=== PATIENT | female | born 1975 | race Caucasian/White ===

== ENCOUNTER → 2018-10-06 | Outpatient (CLI) | payer BC ==
[~2018-10-06] MED LIST: CIPRO750 MG PO; MOTRIN800 MG PO; MULTI-DAY1 TA1 PO; NIFEREX150 MG PO; SYNTHROID0.1 MG PO
[2018-10-06 07:57] LABS: BASO # 0.1 10*3/uL (0.0-0.1); BASO % 0.8 % (0.0-1.0); EOS # 0.3 10*3/uL (0.0-0.4); EOS % 4.7 % (1.0-4.0); HEMATOCRIT 44.1 % (37.0-47.0); HEMOGLOBIN 13.9 g/dl (12.0-16.0); LYMPH # 2.1 10*3/uL (1.3-4.4); LYMPH % 32.2 % (27.0-41.0); MEAN CELL VOLUME 92.5 fl (81.0-99.0); MEAN CORPUSCULAR HGB 29.1 pg (27.0-31.0); MEAN CORPUSCULAR HGB CONC 31.5 g/dl (33.0-37.0); MEAN PLATELET VOLUME 9.9 fl (9.6-12.3); MONO # 0.4 10*3/uL (0.1-1.0); MONO % 5.8 % (3.0-9.0); NEUT # 3.6 10*3/uL (2.3-7.9); NEUT % 56.3 % (47.0-73.0); PLATELET COUNT AUTOMATED 235 10*3/uL (130-400); RED BLOOD COUNT 4.77 10*6/uL (4.10-5.10); RED CELL DISTRI WIDTH 13.2 % (0-14.5); WHITE BLOOD COUNT 6.4 10*3/uL (4.8-10.8)
[2018-10-06 08:31] LABS: ALBUMIN 3.8 gm/dl (3.1-4.5); ALKALINE PHOSPHATASE 111 U/L (45-117); BUN 10 mg/dl (7-24); CHLORIDE 104 mmol/L (98-107); CHOLESTEROL 187 mg/dL (<200); CREATININE 0.81 mg/dL (0.55-1.02); FREE T4 0.84 ng/dl (0.76-1.46); HDL CHOLESTEROL 43 mg/dl (40-60); LDL CHOLESTEROL 114 mg/dL (9-159); POTASSIUM 3.6 mmol/L (3.5-5.1); SGOT/AST 17 IU/L (3-35); SGPT/ALT 21 U/L (12-78); SODIUM 141 mmol/L (136-145); TOTAL PROTEIN 7.5 gm/dL (6.4-8.2); TRIGLYCERIDES 148 mg/dl (<150); VLDL CHOLESTEROL 30 mg/dL (6-40)
[2018-10-06 08:52] LABS: VITAMIN D, 25-HYDROXY 12.7 ng/mL (30-100)
== END | disposition home or self-care (01) ==
LOC: LAB 07:15
PROVIDERS: Internal Medicine
DX: Z13.1 Encounter for screening for diabetes mellitus (principal); Z13.21 Encounter for screening for nutritional disorder; Z13.220 Encounter for screening for lipoid disorders; E11.9 Type 2 diabetes mellitus without complications; E78.2 Mixed hyperlipidemia; I10 Essential (primary) hypertension; E55.9 Vitamin D deficiency, unspecified

== ENCOUNTER 2019-08-08 13:51 | Inpatient (IN) | payer BC ==
[~2019-08-08] VITALS: Ht 162.5 cm; Wt 95.8 kg
[~2019-08-08 13:51] MED LIST changes: -SYNTHROID0.1 MG PO; +Synthroid,Lev150 MCG PO
[2019-08-08 14:00] VITALS: BP 124/78
--- NOTE | 2019-08-08 14:00 | NUR ---
Time: 1399 A 44 year old MALE admitted to under services of BOY FELIZ MD. Pt. arrived via ambulatory from ADMITTING. Chief complaint: DYSURIA. PACO VASQUEZ
[2019-08-08 15:35] LABS: HEMATOCRIT 40.4 % (37.0-47.0); HEMOGLOBIN 13.4 g/dl (12.0-16.0); MEAN CELL VOLUME 87.6 fl (81.0-99.0); MEAN CORPUSCULAR HGB 29.1 pg (27.0-31.0); MEAN CORPUSCULAR HGB CONC 33.2 g/dl (33.0-37.0); MEAN PLATELET VOLUME 10.5 fl (9.6-12.3); PLATELET COUNT AUTOMATED 148 10*3/uL (130-400); RED BLOOD COUNT 4.61 10*6/uL (4.10-5.10); RED CELL DISTRI WIDTH 13.3 % (0-14.5); WHITE BLOOD COUNT 3.2 10*3/uL (4.8-10.8)
[2019-08-08 15:53] LABS: ALBUMIN 3.5 gm/dl (3.1-4.5); ALKALINE PHOSPHATASE 110 U/L (45-117); BUN 9 mg/dl (7-24); CHLORIDE 98 mmol/L (98-107); CREATININE 0.91 mg/dL (0.55-1.02); POTASSIUM 3.7 mmol/L (3.5-5.1); SGOT/AST 54 IU/L (3-35); SGPT/ALT 59 U/L (12-78); SODIUM 133 mmol/L (136-145); TOTAL PROTEIN 7.5 gm/dL (6.4-8.2)
[2019-08-08 16:00] VITALS: BP 129/65
[2019-08-08 16:01] LABS: TOTAL CELLS COUNTED 100 #CELLS
[2019-08-08 16:02] LABS: PLATELET SUFFICIENCY NORMAL (NORMAL)
[2019-08-08 17:28] LABS: BILIRUBIN NEGATIVE (NEGATIVE); BLOOD 1+ (NEGATIVE); CLARITY CLEAR (CLEAR); COLOR YELLOW (YELLOW); GLUCOSE NEGATIVE (NEGATIVE); KETONE NEGATIVE (NEGATIVE); LEUKO ESTERASE 3+ (NEGATIVE); NITRITE NEGATIVE (NEGATIVE); SPECIFIC GRAVITY <= 1.005 (1.005-1.030); UROBILINOGEN 0.2 E.U./dl (0.2-1.0)
[2019-08-08 17:47] LABS: BACTERIA 1+; WBC 16-20 wbc/hpf (0-5)
[2019-08-08 20:00] VITALS: BP 125/78
[2019-08-09] VITALS: BP 117/72
--- NOTE | 2019-08-09 01:07 | NUR ---
24 HR chart check completed.
--- NOTE | 2019-08-09 02:25 | NUR ---
sleeping no acute distress noted.
--- NOTE | 2019-08-09 05:46 | NUR ---
UP TO BATHROOM. ALERT AND ORIENTED X 3. NO ACUTE DISTRESS NOTED.
--- NOTE | 2019-08-09 07:05 | NUR ---
ARRIVED ON SHIFT, INTRODUCED TO PATIENT, NO NEEDS VOICED AT THIS TIME, WHITE BOARD UPDATED. REPORT RECEIVED.
[2019-08-09] MEDS ORDERED: CIPRO500 MG PO (07:43)
[2019-08-09] MEDS ORDERED: DIFLUCAN150 MG PO (07:48)
[2019-08-09 08:00] VITALS: BP 112/55
--- NOTE | 2019-08-09 10:21 | NUR ---
Discharge instructions reviewed with patient/family. Patient receptive and verbalizes understanding. Follow-up care arranged. Written instructions AND PERSCRIPTIONS given to patient. iv removed, declined w/c for discharge. CHARLINE RUBIO
== END 2019-08-09 10:21 | disposition home or self-care (01) | DRG 690 ==
LOC: 4E 13:51
PROVIDERS: ADMIT Internal Medicine
DX: N39.0 Urinary tract infection, site not specified (principal); E03.9 Hypothyroidism, unspecified; N83.202 Unspecified ovarian cyst, left side; I95.9 Hypotension, unspecified

== ENCOUNTER → 2020-07-30 | Outpatient (CLI) | payer BC ==
[~2020-07-30] MED LIST changes: +CIPRO500 MG PO; +DIFLUCAN150 MG PO
== END | disposition home or self-care (01) ==
LOC: COVID19 16:05
PROVIDERS: ATTEND Internal Medicine
DX: Z20.828 Contact with and (suspected) exposure to other viral communicable diseases (principal)

== ENCOUNTER 2022-11-04 18:59 | Emergency (ER) | payer BC ==
[~2022-11-04] VITALS: Ht 162.5 cm; Wt 99.8 kg
== END 2022-11-04 22:14 | disposition home or self-care (01) ==
LOC: ED 18:59
DX: S01.511A Laceration without foreign body of lip, initial encounter (principal); S89.91XA Unspecified injury of right lower leg, initial encounter; S69.91XA Unspecified injury of right wrist, hand and finger(s), initial encounter; R51.9 Headache, unspecified; D64.9 Anemia, unspecified; Z98.890 Other specified postprocedural states; W01.0XXA Fall on same level from slipping, tripping and stumbling without subsequent striking against object, initial encounter; Y93.89 Activity, other specified; Y92.89 Other specified places as the place of occurrence of the external cause; Y99.8 Other external cause status

== ENCOUNTER 2023-06-20 15:18 | Emergency (ER) | payer BC ==
[2023-06-20] MEDS ORDERED: CYMBALTA60 MG PO (15:47)
[2023-06-20] MEDS ORDERED: CRESTOR5 M1 PO (15:49)
[2023-06-20] MEDS ORDERED: HYDROCODONE-AC1 EAC1 PO (15:54)
== END 2023-06-20 16:11 | disposition home or self-care (01) ==
LOC: ED 15:18
DX: S62.620A Displaced fracture of middle phalanx of right index finger, initial encounter for closed fracture (principal); D64.9 Anemia, unspecified; Z98.890 Other specified postprocedural states; W01.0XXA Fall on same level from slipping, tripping and stumbling without subsequent striking against object, initial encounter; Y93.89 Activity, other specified; Y92.89 Other specified places as the place of occurrence of the external cause; Y99.8 Other external cause status

== ENCOUNTER → 2025-06-22 | Outpatient (CLI) | payer BC ==
[~2025-06-22] MED LIST changes: +CRESTOR5 M1 PO; +CYMBALTA60 MG PO; +HYDROCODONE-AC1 EAC1 PO
[2025-06-22 10:29] LABS: BASO # 0.1 10*3/uL (0.0-0.1); BASO % 0.9 % (0.0-1.0); EOS # 0.2 10*3/uL (0.0-0.4); EOS % 3.1 % (1.0-4.0); MEAN CELL VOLUME 88.7 fl (81.0-99.0); MEAN CORPUSCULAR HGB 29.4 pg (27.0-31.0); MEAN PLATELET VOLUME 9.8 fl (9.6-12.3); MONO # 0.3 10*3/uL (0.1-1.0); MONO % 5.2 % (3.0-9.0); NEUT # 3.5 10*3/uL (2.3-7.9); NEUT % 63.0 % (47.0-73.0); NUCLEATED RED BLOOD CELL 0.0 % (0.0-0.0); NUCLEATED RED BLOOD CELL 0.0 10*3/uL (0.0-0.0); PLATELET COUNT AUTOMATED 257 10*3/uL (130-400); RED CELL DISTRI WIDTH 13.5 % (0-14.5)
[2025-06-22 11:09] LABS: BUN 12 mg/dl (9-23); FREE T4 1.52 ng/dl (0.89-1.76); LDL CHOLESTEROL 127 mg/dL (9-159); SGPT/ALT 20 U/L (5-49)
[2025-06-22 18:28] LABS: VITAMIN D, 25-HYDROXY 26.9 ng/mL (30-100)
[2025-06-23 08:08] LABS: ANTI-DSDNA ANTIBODIES <1 IU/mL (0-9)
[2025-06-23 13:07] LABS: CCP ANTIBODIES IGG/IGA 8 units (0-19)
== END | disposition home or self-care (01) ==
LOC: LAB 09:47
PROVIDERS: ATTEND Internal Medicine
DX: I10 Essential (primary) hypertension (principal); E03.9 Hypothyroidism, unspecified; Z13.0 Encounter for screening for diseases of the blood and blood-forming organs and certain disorders involving the immune mechanism; Z13.1 Encounter for screening for diabetes mellitus; Z13.21 Encounter for screening for nutritional disorder; Z13.220 Encounter for screening for lipoid disorders; Z13.228 Encounter for screening for other metabolic disorders; Z13.29 Encounter for screening for other suspected endocrine disorder; Z13.6 Encounter for screening for cardiovascular disorders; Z13.89 Encounter for screening for other disorder; Z13.9 Encounter for screening, unspecified